=== PATIENT | male | born 1970 | race Caucasian/White ===

== ENCOUNTER → 2020-02-25 10:32 | Outpatient (BNVA) | payer BC, SELFPAY | PROVIDERS: Visit Provider Emergency Medicine | DX: I10 Essential (primary) hypertension (principal) | CPT/HCPCS: 80053; 80061; 83880; 85025 ==

== ENCOUNTER → 2020-05-13 13:23 | Outpatient (BNVA) | payer BC, SELFPAY | PROVIDERS: Visit Provider Nurse Practitioner Family | DX: Z20.828 Contact with and (suspected) exposure to other viral communicable diseases (principal); J06.9 Acute upper respiratory infection, unspecified; U07.1 COVID-19 | CPT/HCPCS: 87635 ==

== ENCOUNTER → 2020-05-16 10:58 | Outpatient (BNVA) | payer BC, SELFPAY | PROVIDERS: Visit Provider Nurse Practitioner Family | DX: R68.89 Other general symptoms and signs (principal) | CPT/HCPCS: 87400; 87635 ==

== ENCOUNTER → 2020-06-08 18:00 | Outpatient (BNVA) | payer BC, SELFPAY | PROVIDERS: Visit Provider Nurse Practitioner Family | DX: R53.83 Other fatigue (principal); I10 Essential (primary) hypertension | CPT/HCPCS: 82607; 82652; 84443; 86140 ==

== ENCOUNTER → 2020-08-18 09:33 | Outpatient (BNVA) | payer BC, SELFPAY | PROVIDERS: Visit Provider Family Medicine | DX: I10 Essential (primary) hypertension (principal); R53.83 Other fatigue; E78.49 Other hyperlipidemia | CPT/HCPCS: 80053; 80061; 82607; 82652; 83721; 84402; 84403; 84443 ==

== ENCOUNTER → 2020-09-01 14:56 | Outpatient (BNVA) | payer BC, SELFPAY | PROVIDERS: Visit Provider Emergency Medicine | DX: Z20.828 Contact with and (suspected) exposure to other viral communicable diseases (principal); R68.89 Other general symptoms and signs | CPT/HCPCS: 87400; 87635 ==

== ENCOUNTER → 2021-03-31 10:54 | Outpatient (BNVA) | payer BC, SELFPAY | PROVIDERS: Visit Provider Emergency Medicine | DX: E78.49 Other hyperlipidemia (principal); I10 Essential (primary) hypertension | CPT/HCPCS: 80053; 80061; 84443; 85025 ==

== ENCOUNTER → 2021-06-28 11:24 | Outpatient (BNVA) | payer BC, SELFPAY | PROVIDERS: Visit Provider Nurse Practitioner Family | DX: Z20.822 Contact with and (suspected) exposure to COVID-19 (principal); R68.89 Other general symptoms and signs | CPT/HCPCS: 87635 ==

== ENCOUNTER → 2021-07-24 09:30 | Outpatient (BNVA) | payer BC, SELFPAY | PROVIDERS: Visit Provider Family Medicine | DX: I10 Essential (primary) hypertension (principal); E78.49 Other hyperlipidemia; M25.562 Pain in left knee; L03.116 Cellulitis of left lower limb | CPT/HCPCS: 80048; 84550; 85025 ==

== ENCOUNTER → 2021-08-27 09:05 | Outpatient (BNVA) | payer BC, SELFPAY | PROVIDERS: Visit Provider Family Medicine | DX: E78.49 Other hyperlipidemia (principal) | CPT/HCPCS: 80061 ==

== ENCOUNTER → 2022-03-19 11:02 | Outpatient (BNVA) | payer BC, SELFPAY | PROVIDERS: Visit Provider Family Medicine | DX: E78.49 Other hyperlipidemia (principal); J30.2 Other seasonal allergic rhinitis; I10 Essential (primary) hypertension; Z82.49 Family history of ischemic heart disease and other diseases of the circulatory system; Z12.11 Encounter for screening for malignant neoplasm of colon | CPT/HCPCS: 80053; 80061 ==

== ENCOUNTER 2022-06-11 06:14 | Day surgery (SDC) | payer BC, SELFPAY ==
[2022-06-07 08:05] VITALS: BMI 34.9
[2022-06-11 06:36] VITALS: BP 120/90; PULSE 79; RESP 18; TEMP 36.4; O2SAT 95
[2022-06-11] MEDS: sodium chloride 0.9% 1,000 ML 30 ML IV (06:39)
--- NOTE | 2022-06-11 06:45 | P.HP_ITS ---
Same Day Surgery H&P Indication for Procedure/HPI DATE OF PROCEDURE: June 11, 2022 CHIEF COMPLAINT/INDICATIONFOR SURGICAL PROCEDURE: Screening colonoscopy PREOP DIAGNOSIS: Screening colonoscopy PLANNED PROCEDURE: Operation Date: 06/11/22 08:00 Proposed Procedures p Colonoscopy 55476,Z12.11(Not Applicable) - Paolo Flower MD This is a pleasant 51 years old gentleman comes today for screening colonoscopy. Had a colonoscopy about 10 to 15 years ago in [place] per patient's description and was reported as normal. Denies colon cancer history or bleeding per rectum. No previous abdominal surgeries except for right inguinal hernia ROS All systems have been reviewed negative except as for the above or per problem list. Medications/Allergies* Home Medications Medication Instructions Recorded Confirmed Type aspirin 81 mg tablet,delayed 81 mg PO DAILY 02/25/20 06/11/22 History release (Jason Low Dose Aspirin) multivitamin 1 tab PO DAILY 02/25/20 06/11/22 History omega-3 fatty acids 1,000 mg 1,000 mg PO DAILY 02/25/20 06/11/22 History capsule (Fish Oil Concentrate) astragalus root 250 mg capsule 250 mg PO DAILY 06/29/20 06/11/22 History losartan 25 mg tablet 50 mg PO DAILY 06/04/22 06/11/22 History lovastatin 40 mg tablet 40 mg PO DAILY 06/04/22 06/11/22 History Allergies/Adverse Reactions Allergy/AdvReac Type Severity Reaction Status Date / Time amlodipine Allergy Severe face Verified 06/11/22 06:48 swelling lisinopril Allergy Severe ALGY-HIVES Verified 06/11/22 06:48 hydrochlorothiazide Allergy Intermediate hives Verified 06/11/22 06:48 Current Medications: Generic Name Dose Route Start Last Admin Trade Name Freq PRN Reason Stop Dose Admin Sodium Chloride 1,000 mls @ 30 mls/hr 06/11/22 06:30 06/11/22 06:39 Sodium Chloride 0.9% IV 06/12/22 06:29 30 mls/hr .Q24H DO Administration Pertinent History/Comorbid Conditions* Medical History (Updated 06/05/22 @ 20:08 by Yolie Jaquez MD) Allergy to OLEKSANDR inhibitors Family history of ischemic heart disease and other diseases of the circulatory system HTN (hypertension) with goal to be determined Allergic to lisinopril and amlodipine. 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 I discussed with the patient in details the risks,benefits,alternatives and indications.The risk of aspiration, bleeding, soft tissue injury, perforation of the colon ,missed lesions and other potential concomitant complications were explained to the patient in details,also the potential need for Laproscoy/Laparotomy to repair any related complications including but not limited to colectomy and or Closotomy.The patient understood this well and did agree to proceed. Rationale was carefully and clearly discussed with the patient.Appropriate informed consent have been reviewed and signed All questions have been answered and all concerns have been addressed to patient's satisfaction. Verbal and written Instructions were given to the patient for colonoscopy prep Coding Level of Care Code Acute [employer]el[employer] for Michael Vyas
--- NOTE | 2022-06-11 07:59 | P.ANESASSM_ITS ---
Pre-Anesthetic Assessment Height/Weight: Height 1.91 m Weight 127.006 kg Temp Pulse Resp BP Pulse Ox O2 Del Method 97.6 F 79 18 120/90 95 06/11/22 06:36 06/11/22 06:36 06/11/22 06:36 06/11/22 06:36 06/11/22 06:36 06/11/22 06:36 Preop Diagnosis: Screening colonoscopy Operation Date: 06/11/22 08:00 Proposed Procedures p Colonoscopy 52222,Z12.11(Not Applicable) - Paolo Flower MD Familial anesthetic complications: none Was Beta [place] taken within 24 hours: N/A Was Clonidine taken within 24 hours: N/A Last intake: Intake Last Liquid Date 06/10/22 Last Liquid Time 22:00 Last Solid Date 06/09/22 Last Solid Time 19:00 Social No alcohol and No tobacco Exam alert, oriented x 3, clear to auscultation bilaterally and regular rate & rhythm Airway Submandibular: within normal limits Cervical ROM: within normal limits Mallampati: Class II Dentition: chipped CV/HEM Hypertension Metabolic Hyperlipidemia and Morbid Obesity Neuropsych Anxiety and Depression Anesthetic Plan ASA status: 3 Anesthesia: MAC Medications/Allergies Home Medications Medication Instructions Recorded Confirmed Last Taken Type aspirin 81 mg tablet,delayed 81 mg PO DAILY 02/25/20 06/11/22 06/04/22 History release (Jason Low Dose Aspirin) multivitamin 1 tab PO DAILY 02/25/20 06/11/22 06/04/22 History omega-3 fatty acids 1,000 mg 1,000 mg PO DAILY 02/25/20 06/11/22 06/04/22 History capsule (Fish Oil Concentrate) astragalus root 250 mg capsule 250 mg PO DAILY 06/29/20 06/11/22 06/04/22 History spironolactone 25 mg tablet 25 mg PO DAILY 90 days #90 tabs 07/24/21 06/11/22 06/04/22 Rx fluticasone propionate 50 1 spray intranasal Q12H #15.8 mL 03/19/22 06/11/22 06/04/22 Rx mcg/actuation nasal spray,suspension fluoxetine 10 mg capsule (Prozac) 10 mg PO DAILY 30 days #30 caps 03/20/22 06/11/22 06/04/22 Rx losartan 25 mg tablet 50 mg PO DAILY 06/04/22 06/11/22 06/04/22 History lovastatin 40 mg tablet 40 mg PO DAILY 06/04/22 06/11/22 06/04/22 History Allergies Allergy/AdvReac Type Severity Reaction Status Date / Time amlodipine Allergy Severe face Verified 06/11/22 06:48 swelling lisinopril Allergy Severe ALGY-HIVES Verified 06/11/22 06:48 hydrochlorothiazide Allergy Intermediate hives Verified 06/11/22 06:48 Current Medications Generic Name Dose Route Start Last Admin Trade Name Freq PRN Reason Stop Dose Admin Sodium Chloride 1,000 mls @ 30 mls/hr 06/11/22 06:30 06/11/22 06:39 Sodium Chloride 0.9% IV 06/12/22 06:29 30 mls/hr .Q24H DO Administration PFSH Anesthesia Medical History (Updated 06/05/22 @ 20:08 by Yolie Jaquez MD) Allergy to OLEKSANDR inhibitors Family history of ischemic heart disease and other diseases of the circulatory system HTN (hypertension) with goal to be determined Allergic to lisinopril and amlodipine. 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
[2022-06-11 08:46] VITALS: BP 115/73; PULSE 70; RESP 16; TEMP 37.2; O2SAT 93
[2022-06-11 09:10] VITALS: BP 149/95; PULSE 71; RESP 18; O2SAT 97
--- NOTE | 2022-06-11 15:43 | ANE.PACU2 ---
Inpatient post-anesthesia follow up: Airway intact: Yes Vital signs: Temperature 99.0 F Pulse Rate 71 Respiratory Rate 18 Blood Pressure 149/95 Pulse Oximetry 97 Oxygen Delivery Me thod Room Air Oxygen Flow Rate Fraction of Inspir ed Oxygen Hydration adequate: Yes Nausea and vomiting: No Pain level: 2 Mental status: Baseline
== END 2022-06-11 09:21 | disposition home or self-care (01) ==
PROVIDERS: PCP Family Medicine; Visit Provider Surgery
PROC: 0DJD8ZZ Inspection of Lower Intestinal Tract, Via Natural or Artificial Opening Endoscopic (ICD-10-PCS; CPT 45378; principal; 2022-06-11 08:00)
DX: Z12.11 Encounter for screening for malignant neoplasm of colon (principal); Z79.82 Long term (current) use of aspirin; I10 Essential (primary) hypertension; E78.5 Hyperlipidemia, unspecified; K57.30 Diverticulosis of large intestine without perforation or abscess without bleeding; E66.01 Morbid (severe) obesity due to excess calories; Z68.35 Body mass index [BMI] 35.0-35.9, adult
CPT/HCPCS: 45378; J2704; J7030

== ENCOUNTER → 2022-10-07 09:02 | Outpatient (BNVA) | payer BC, SELFPAY | PROVIDERS: PCP Family Medicine; Visit Provider Family Medicine | DX: I10 Essential (primary) hypertension (principal); E78.5 Hyperlipidemia, unspecified | CPT/HCPCS: 80053; 80061 ==

== ENCOUNTER → 2023-04-15 09:04 | Outpatient (BNVA) | payer BC, SELFPAY | PROVIDERS: PCP Family Medicine; Visit Provider Family Medicine | DX: K92.2 Gastrointestinal hemorrhage, unspecified (principal); E78.49 Other hyperlipidemia; I10 Essential (primary) hypertension | CPT/HCPCS: 80053; 80061; 85025 ==

== ENCOUNTER → 2023-11-14 09:56 | Outpatient (BNVA) | payer BC, SELFPAY | PROVIDERS: PCP Family Medicine; Visit Provider Family Medicine | DX: I10 Essential (primary) hypertension (principal); E78.49 Other hyperlipidemia; F32.A Depression, unspecified; R53.83 Other fatigue; Z83.49 Family history of other endocrine, nutritional and metabolic diseases; Z12.5 Encounter for screening for malignant neoplasm of prostate; F33.1 Major depressive disorder, recurrent, moderate; K27.4 Chronic or unspecified peptic ulcer, site unspecified, with hemorrhage; J30.2 Other seasonal allergic rhinitis | CPT/HCPCS: 80053; 84443; 85025; G0103 ==

== ENCOUNTER → 2024-10-27 09:26 | Outpatient (BNVA) | payer BC, SELFPAY | PROVIDERS: PCP Family Medicine; Visit Provider Family Medicine | DX: Z12.5 Encounter for screening for malignant neoplasm of prostate (principal); I10 Essential (primary) hypertension; E78.49 Other hyperlipidemia | CPT/HCPCS: 80053; 80061; G0103 ==

== ENCOUNTER → 2025-06-14 14:06 | Outpatient (BNVA) | payer BC, SELFPAY | PROVIDERS: PCP Family Medicine; Visit Provider Family Medicine | DX: I10 Essential (primary) hypertension (principal) | CPT/HCPCS: 80048 ==